=== PATIENT | female | born 1995 | race Hispanic/Latino ===

== ENCOUNTER 2017-10-29 16:51 | Emergency (ER) | payer OTHER ==
[~2017-10-29] VITALS: Ht 154.9 cm; Wt 83.9 kg
[~2017-10-29 16:51] MED LIST: IBUPROFEN800 M1 PO; LOESTRIN 21 1-1 EACH PO; NAPROSYN500 M1 PO; ROBAXIN500 M1 PO; ZOFRAN ODT4 M1 SL
[2017-10-29 21:13] LABS: ABSOLUTE BASOPHIL COUNT 0 /CUMM (0.0-0.2); ABSOLUTE EOSINOPHIL COUNT 0.1 /CUMM (0.0-0.7); ABSOLUTE GRANULOCYTE CT 7.6 /CUMM (1.4-6.5); ABSOLUTE LYMPH COUNT 2.5 /CUMM (1.2-3.4); ABSOLUTE MONOCYTE COUNT 0.3 /CUMM (0.10-0.60); BASOPHIL % 0.3 % (0.0-2.0); EOSINOPHIL % 0.7 % (0-5); GRANULOCYTE % 72.5 % (42.2-75.2); MEAN CORPUSCULAR HGB 27.7 PG (27.0-31.0); MEAN CORPUSCULAR HGB CONC 33.4 G/DL (33.0-37.0); MEAN CORPUSCULAR VOLUME 82.8 FL (81.0-99.0); MEAN PLATELET VOLUME 8.2 FL (7.4-10.4); PLATELET COUNT 349 /CUMM (130-400); RBC DISTRIBUTION WIDTH 13.6 % (11.5-14.5); RED BLOOD CELL CT 5.55 /CUMM (4.20-5.40); WHITE BLOOD CELL COUNT 10.5 /CUMM (4.8-10.8)
[2017-10-29 21:19] VITALS: BP 116/72
--- NOTE | 2017-10-29 21:46 | ED GI/GU/ABDOMINAL COMPLAINT ---
History of Present Illness General Chief Complaint: Abdominal Pain/Flank Pain Stated Complaint: ABD PAIN X 2WEEKS Source: patient Exam Limitations: no limitations Vital Signs & Intake/Output Vital Signs & Intake/Output ED Intake and Output 10/31 0000 10/30 1200 Intake Total 60 Output Total Balance 60 Intake, Oral 60 Allergies Coded Allergies: No Known Allergies (01/20/17) Reconcile Medications Ibuprofen 800 MG TABLET 1 TAB PO TID PRN PAIN Ibuprofen 800 MG TABLET 1 TAB PO TID PRN pain Methocarbamol (Robaxin) 500 MG TABLET 1 TAB PO TID PRN muscle spasms Naproxen (Naprosyn) 500 MG TABLET 1 TAB PO BID PRN pain Norethindrone AC-Eth Estradiol (Loestrin 21 1-20 Tablet) 1 MG-20 MCG TABLET ( Unknown Dose) PO CONTROL (Reported) Ondansetron (Zofran Odt) 4 MG TAB.RAPDIS 1 TAB SL TID PRN NAUSEA Tylenol With Codeine (Tylenol With Codeine #3 Tablet) 300 MG-30 MG TABLET 1 TAB PO Q4-6 PRN PRN PAIN Triage Note: PT STATES THAT SHE HAS VERY BAD ABD PAIN FOR THE LAST 2 WEEKS.. PER PT THE PAIN COMES AND GOES AND PT STATES THAT SHE WANTS TO GET CHECKED OUT.. PT STATES THAT THE PAIN IS STRONGER TODAY 11/27.. PT STATES THAT SHE MIGHTS BE .. PT DENIES NVD LMP 2 MONTHS AGO. Triage Nurses Notes Reviewed? yes LMP (ages 10-50): date (2 months ) ? n Is pt currently ? No Onset: Abrupt Duration: week(s): (2), changing over time, continues in ED, getting worse, intermittent Timing: single episode today Quality/Severity: cramping Severity Numbers: 6 Location: generalized abdomen Radiation: no radiation Activities at Onset: none Prior Abdominal Problems: none Sexually Active: Yes No Modifying Factors: none Modifying Factors: Worsens With: movement, palpation. Associated Symptoms: abdominal pain HPI: 22-year-old female past medical history of polycystic ovarian syndrome since her evaluation of abdominal pain. Symptoms have been present for the past 2 weeks intermittently. The pain comes and goes. Today the pain was the worst it's been. She rates it as a 6 out of 10. Is located diffusely in the abdomen. Nothing seems to bring the pain on. No nausea vomiting diarrhea or back pain chest pain shortness of breath vaginal discharge vaginal bleeding or urinary symptoms. Her last menstrual cycle was 2 months ago. She denies any recent abdominal surgeries. (Jayant Diaz) Past History Travel History Traveled to [place] past 21 day No Medical History Any Pertinent Medical History? 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 No (Jayant Diaz) Review of Systems Review of Systems Constitutional: Reports: no symptoms. EENTM: Reports: no symptoms. Respiratory: Reports: no symptoms. Cardiovascular: Reports: no symptoms. GI: Reports: see HPI, abdominal pain. Genitourinary: Reports: no symptoms. Musculoskeletal: Reports: no symptoms. Skin: Reports: no symptoms. Neurological/Psychological: Reports: no symptoms. Hematologic/Endocrine: Reports: no symptoms. Immunologic/Allergic: Reports: no symptoms. All Other Systems: Reviewed and Negative (Jayant Diaz) Physical Exam Physical Exam General Appearance: well developed/nourished, no apparent distress, alert, awake Head: atraumatic, normal appearance Eyes: Bilateral: normal appearance, PERRL, EOMI, normal inspection. Ears, Nose, Throat, Mouth: hearing grossly normal, moist mucous membrane Neck: normal inspection, supple, full range of motion Respiratory: normal breath sounds, chest non-tender, no respiratory distress, lungs clear Cardiovascular: regular rate/rhythm, normal peripheral pulses Peripheral Pulses: 2+ radial (R), 2+ radial (L) Gastrointestinal: normal bowel sounds, soft, no organomegaly, tenderness ( diffuse no rebound or gaurding) Back: normal inspection, normal range of motion, no vertebral tenderness, no CVA tenderness Extremities: normal range of motion Neurologic/Psych: no motor/sensory deficits, awake, alert, oriented x 3, normal gait, normal mood/affect Skin: intact, normal color, warm/dry Core Measures ACS in differential dx? No Sepsis Present: No Sepsis Focused Exam Completed? No (Jayant Diaz) Progress Differential Diagnosis: appendicitis, biliary colic, bowel obstruction, cholecystitis, diverticulitis, ectopic , endometritis, gastritis, inflamm bowel dis, intrauterine , kidney stone, ovarian cyst, ovarian torsion, pancreatitis, PID/cervicitis, peptic ulcer, PUD/GERD, SBO, threatened AB, UTI/pyelo Plan of Care: Orders Procedure Date/time Status Add-on Test (ER Only) 10/29 2130 Active HUMAN BETA HCG SCREEN 10/30 2103 Complete URINALYSIS 10/29 2005 Complete LIPASE 10/29 2005 Complete COMPREHENSIVE METABOLIC PANEL 10/29 2005 Complete CBC WITHOUT DIFFERENTIAL 10/29 2005 Complete Laboratory Tests 10/29/17 2339: Urinalysis MOD H, Urine Color YEL, Urine Clarity CLEAR, Urine pH 6.0, Ur Specific [place] 1.020, Urine Protein NEG, Urine Ketones NEG, Urine Nitrite NEG, Urine Bilirubin NEG, Urine Urobilinogen 0.2, Ur Leukocyte Esterase TRACE H, Ur Microscopic SEDIMENT EXAMINED, Urine WBC 5-10 H, Ur Epithelial Cells FEW, Urine Bacteria FEW H, Urine Mucus MOD H, Urine Hemoglobin NEG, Urine Glucose NEG 10/29/172103: Anion Gap 15, Estimated GFR > 60, BUN/Creatinine Ratio 14.4, Glucose 92, Calcium 10.5 H, Total Bilirubin 0.4, AST 25, ALT 37, Alkaline Phosphatase 76, Total Protein 8.4 H, Albumin 5.3 H, Globulin 3.1, Albumin/Globulin Ratio 1.7, Lipase 140, Total Beta HCG NEGATIVE, CBC w Diff NO MAN DIFF REQ, RBC 5.55 H, MCV 82.8, MCH 27.7, MCHC 33.4, RDW 13.6, MPV 8.2, Gran % 72.5, Lymphocytes % 23.3, Monocytes % 3.2, Eosinophils % 0.7, Basophils % 0.3, Absolute Granulocytes 7.6 H, Absolute Lymphocytes 2.5, Absolute Monocytes 0.3, Absolute Eosinophils 0.1, Absolute Basophils 0 10/29/17 1656: Urine Test Cancelled Patient seen and evaluated. She is here with diffuse abdominal pain has been intermittent over 2 weeks. No associated symptoms. She never had this before. Vital signs are stable. Patient is medicated initially with Pepcid and Tylenol. We'll check basic labs and CT scan of the abdomen and pelvis. blood Work is within normal limits. testing is negative. CT scan of the abdomen and pelvis does not show any acute findings. Patient is feeling somewhat better after Tylenol but still does report some pain. She'll be given a prescription for Tylenol with codeine to use for pain. Continue Pepcid as needed. Follow-up with EKG MONITOR and primary care doctor. Discussed return precautions in detail. Patient agrees the plan Diagnostic Imaging: Viewed by Me: CT Scan. Discussed w/RAD: CT Scan. Radiology Impression: PATIENT: NANCY KEMP PRESENT AGE: 22 PATIENT ACCOUNT NO: [id number] : 97 LOCATION: [facility] ORDERING PHYSICIAN: Jayant SAUER SERVICE DATE: 10/29/17 EXAM TYPE: CAT - CT ABD & PELVIS W IV CONTRAST EXAMINATION: CT ABDOMEN AND PELVIS WITH CONTRAST CLINICAL INFORMATION: 22-year-old woman with bilateral lower abdominal pain. COMPARISON: 04/08/[address] TECHNIQUE: Multidetector volumetric imaging was performed of the abdomen and pelvis following IV administration of 95 mL of Optiray 320 intravenous contrast. Sagittal and coronal reformatted images were obtained on the technologist's workstation. DLP: 568 mGy-cm FINDINGS: The lung bases are well aerated. The liver, spleen, pancreas, adrenals, kidneys, and contracted gallbladder are normal in appearance. Nondilated loops of large and small bowel are unremarkable in appearance. The terminal ileum is is not inflamed. The appendix is not clearly identified, although there is no stranding in the right lower quadrant to suggest acute appendicitis. The uterus and bladder are normal in appearance, as are right adnexal structures. Left adnexal structures are not well visualized. IMPRESSION: No acute intra-abdominal process is appreciated. DICTATED BY: Irene Alvarez MD DATE/TIME DICTATED:10/29/172248 RAIL SWITCH OPERATOR:YOLY DATE/TIME TRANSCRIBED:10/29/172248 CONFIDENTIAL, DO NOT COPY WITHOUT APPROPRIATE AUTHORIZATION. <Electronically signed in Other Vendor System> SIGNED BY: Irene Alvarez MD 10/29/172256 Initial ED EKG: none (Jayant Diaz) Departure Departure Disposition: HOME OR SELF CARE Condition: Stable Clinical Impression Primary Impression: Abdominal pain Qualifiers: Abdominal location: generalized Qualified Code: R10.84 - Generalized abdominal pain Referrals: Carlos Manuel Thacker MD (PCP/Family) Additional Instructions: Rest, drink plenty of fluids. Continue Tylenol as needed for pain. Tylenol with codeine for severe pain only this may cause drowsiness. Make a follow-up with YOUR primary care doctor and EKG MONITOR doctor soon as possible. Monitor symptoms return with any concerns. Departure Forms: Customer Survey General Discharge Information Prescriptions: Current Visit Scripts Tylenol With Codeine (Tylenol With Codeine #3 Tablet) 1 TAB PO Q4-6 PRN PRN PAIN #10 TAB (Jayant Diaz) PA/MACHINE CHOCOLATE MOLDER Co-Sign Statement Statement: ED Attending supervision documentation- I saw and evaluated the patient. I have also reviewed all the pertinent lab results and diagnostic results. I agree with the findings and the plan of care as documented in the PA's/MACHINE CHOCOLATE MOLDER's documentation. x I have reviewed the ED Record and agree with the PA's/MACHINE CHOCOLATE MOLDER's documentation. [] Additions or exceptions (if any) to the PAs/MACHINE CHOCOLATE MOLDER's note and plan are summarized below: [] ([facility] BECKMAN,Giovanni)
--- NOTE | 2017-10-29 22:57 | CT SCAN REPORT ---
EXAMINATION: CT ABDOMEN AND PELVIS WITH CONTRAST CLINICAL INFORMATION: 22-year-old woman with bilateral lower abdominal pain. COMPARISON: 04/08/[address] TECHNIQUE: Multidetector volumetric imaging was performed of the abdomen and pelvis following IV administration of 95 mL of Optiray 320 intravenous contrast. Sagittal and coronal reformatted images were obtained on the technologist's workstation. DLP: 568 mGy-cm FINDINGS: The lung bases are well aerated. The liver, spleen, pancreas, adrenals, kidneys, and contracted gallbladder are normal in appearance. Nondilated loops of large and small bowel are unremarkable in appearance. The terminal ileum is is not inflamed. The appendix is not clearly identified, although there is no stranding in the right lower quadrant to suggest acute appendicitis. The uterus and bladder are normal in appearance, as are right adnexal structures. Left adnexal structures are not well visualized. IMPRESSION: No acute intra-abdominal process is appreciated.
[2017-10-30] MEDS ORDERED: TYLENOL WITH C1 EACH PO (00:03)
== END 2017-10-30 00:04 ==
LOC: ERH 16:51
PROVIDERS: Physician Assistant Medical
DX: R10.84 Generalized abdominal pain (principal)
CPT/HCPCS: 74177; 81001; 81025